=== PATIENT | female | born 1970 | race Caucasian/White ===

== ENCOUNTER 2017-11-17 08:31 | Emergency (ER) | payer MEDICAID ==
[~2017-11-17] VITALS: Ht 162.6 cm; Wt 73.0 kg
[2017-11-17 08:46] VITALS: BP 124/70
== END 2017-11-17 17:16 | disposition left against medical advice (07) ==
LOC: ER 08:58
DX: Z53.21 Procedure and treatment not carried out due to patient leaving prior to being seen by health care provider (principal)